=== PATIENT | female | born 2000 | race Caucasian/White ===

== ENCOUNTER 2022-09-13 00:19 | Observation (INO) | payer BC ==
[~2022-09-13] VITALS: Ht 152.4 cm; Wt 54.1 kg
[2022-09-13 00:30] VITALS: BP 101/67
[2022-09-13] MEDS ORDERED: MAG/ALUM/SIMETH 30 ML UDCUP PO PRN (01:30)
[2022-09-13] MEDS ORDERED: MORPHINE 4 MG SYG IV PRN (01:30)
[2022-09-13] MEDS ORDERED: BENZOCAINE/MENTH/CETYLPYRD CL 1 EACH LOZENGE MM PRN (01:30)
[2022-09-13] MEDS ORDERED: HYDROCODONE/ACETAMINOPHEN 5/325 MG TAB PO PRN (01:30)
[2022-09-13] MEDS ORDERED: ACETAMINOPHEN 325 MG TAB PO PRN ×2 (01:30)
[2022-09-13] MEDS ORDERED: ONDANSETRON 4MG INJ IV PRN (01:30)
[2022-09-13 02:05] LABS: HEMATOCRIT 34.5 % (36-48); MEAN CORPUSCULAR HEMOGLOBIN 31.5 pg (27.0-33.0); MEAN CORPUSCULAR HGB CONC 33.9 g/dL (32.0-36.0); MEAN CORPUSCULAR VOLUME 92.7 fL (80-100); RED BLOOD CELL COUNT(AUTO) 3.72 MIL/uL (4.00-5.50); RED CELL DISTRIBUTION WIDTH 12.1 % (11.0-15.5); WHITE BLOOD COUNT (AUTO) 5.5 K/uL (4.8-10.8)
[2022-09-13] MEDS: GUAIFENESIN-DM 200/20 MG 10 ML PO PRN ×3 (02:11→17:19)
[2022-09-13] MEDS: 0.9%NACL 1000ML 1,000 ML IV SCH ×3 (02:12→21:58)
[2022-09-13 02:23] LABS: POTASSIUM 3.5 mmol/L (3.5-5.1)
[2022-09-13 03:45] VITALS: BP 104/72
[2022-09-13] MEDS: IPRATROPIUM/ALBUTEROL SULFATE 3 ML SOLUTION IH SCH ×4 (06:37→23:40)
[2022-09-13 07:59] VITALS: BP 108/69
[2022-09-13] MEDS: FAMOTIDINE 20MG TAB PO SCH ×2 (09:22→21:59)
[2022-09-13] MEDS: OSELTAMIVIR PHOSPHATE 75 MG CAP PO SCH ×2 (09:22→21:59)
[2022-09-13 11:19] VITALS: BP 108/75
[2022-09-13 15:55] VITALS: BP 110/65
[2022-09-13 17:28] LABS: APPEARANCE,URINE CLEAR (CLEAR); BILIRUBIN,URINE NEGATIVE (NEGATIVE); COLOR,URINE YELLOW (YELLOW); GLUCOSE, URINE (UA) NEGATIVE (NEGATIVE); KETONES,URINE 10 mg/dL (NEGATIVE); LEUKOCYTE ESTERASE ,URINE NEGATIVE Leu/uL (NEGATIVE); NITRATE,URINE NEGATIVE (NEGATIVE); OCCULT BLOOD,URINE NEGATIVE (NEGATIVE); PROTEIN,URINE 30 mg/dL (NEGATIVE); UROBILINOGEN,URINE 0.2 mg/dL (0.2-1.0)
[2022-09-13 17:33] LABS: MUCUS,URINE FEW LPF (None Seen); SQUAMOUS EPITHELIAL CELL,UR FEW /HPF (0-2)
[2022-09-13 17:36] LABS: AMPHET/METH SCREEN,URINE NEGATIVE (NEGATIVE); BARBITURATE SCREEN, URINE NEGATIVE (NEGATIVE); BENZODIAZEPINES SCREEN,URINE NEGATIVE (NEGATIVE); CANNABINOID SCREEN,URINE POSITIVE (NEGATIVE); COCAINE SCREEN,URINE NEGATIVE (NEGATIVE); OPIATE SCREEN,URINE NEGATIVE (NEGATIVE); PHENCYCLIDINE SCREEN,URINE NEGATIVE (NEGATIVE)
[2022-09-13 20:06] VITALS: BP 117/93
[2022-09-13] MEDS ORDERED: ZOLPIDEM TARTRATE 5 MG TAB PO PRN (21:00)
[2022-09-14 00:11] VITALS: BP 111/62
[2022-09-14 03:58] VITALS: BP 112/76
[2022-09-14] MEDS: IPRATROPIUM/ALBUTEROL SULFATE 3 ML SOLUTION IH SCH ×2 (06:17→11:15)
[2022-09-14 07:30] VITALS: BP 118/55
[2022-09-14] MEDS: FAMOTIDINE 20MG TAB PO SCH (09:49)
[2022-09-14] MEDS: OSELTAMIVIR PHOSPHATE 75 MG CAP PO SCH (09:49)
[2022-09-14] MEDS ORDERED: OSEL75 PO (10:33)
== END 2022-09-14 12:30 | disposition home or self-care (01) ==
LOC: 4DH 00:19
PROVIDERS: ADMIT Hospitalist; ATTEND Hospitalist
DX: J10.1 Influenza due to other identified influenza virus with other respiratory manifestations (principal); R00.0 Tachycardia, unspecified; J39.8 Other specified diseases of upper respiratory tract; R06.2 Wheezing; I25.10 Atherosclerotic heart disease of native coronary artery without angina pectoris; I42.9 Cardiomyopathy, unspecified; Z79.899 Other long term (current) drug therapy; Z98.890 Other specified postprocedural states
CPT/HCPCS: 96374; 96361 ×3; 84484; 80048; 80305; 85027; 85651; 87880; 86140; 81001; 81025; 36415; 93306; 93356; 93005; 94640 ×6; 94664; 82948; G0378 ×32; J7030 ×2; J2405

== ENCOUNTER 2023-04-13 04:39 | Emergency (ER) | payer BC ==
[~2023-04-13] VITALS: Ht 152.4 cm; Wt 63.5 kg
[~2023-04-13 04:39] MED LIST: OSEL75 PO
[2023-04-13 05:23] LABS: APPEARANCE,URINE CLEAR (CLEAR); BILIRUBIN,URINE NEGATIVE (NEGATIVE); COLOR,URINE COLORLESS (YELLOW); GLUCOSE, URINE (UA) NEGATIVE (NEGATIVE); KETONES,URINE NEGATIVE (NEGATIVE); LEUKOCYTE ESTERASE ,URINE NEGATIVE Leu/uL (NEGATIVE); NITRATE,URINE NEGATIVE (NEGATIVE); OCCULT BLOOD,URINE MODERATE (NEGATIVE); PROTEIN,URINE NEGATIVE (NEGATIVE); UROBILINOGEN,URINE 0.2 mg/dL (0.2-1.0)
[2023-04-13 05:24] LABS: HCG,QUALITATIVE URINE NEGATIVE (NEGATIVE)
[2023-04-13 05:29] LABS: RBC,URINE 0-1 /HPF (0-1); SQUAMOUS EPITHELIAL CELL,UR RARE /HPF (0-2); WBC,URINE 0-1 /HPF (0-1)
[2023-04-13 05:30] LABS: AMPHET/METH SCREEN,URINE NEGATIVE (NEGATIVE); BARBITURATE SCREEN, URINE NEGATIVE (NEGATIVE); BENZODIAZEPINES SCREEN,URINE NEGATIVE (NEGATIVE); CANNABINOID SCREEN,URINE POSITIVE (NEGATIVE); COCAINE SCREEN,URINE NEGATIVE (NEGATIVE); OPIATE SCREEN,URINE NEGATIVE (NEGATIVE); PHENCYCLIDINE SCREEN,URINE NEGATIVE (NEGATIVE)
[2023-04-13] MEDS ORDERED: DiphenhydrAMINE HCL 50 MG/ML VIAL IV ONE (05:30)
[2023-04-13] MEDS ORDERED: KETOROLAC 30MG VIAL (30MG/ML) IVP ONE (05:30)
[2023-04-13] MEDS ORDERED: METOCLOPRAMIDE 10 MG/2 ML VIAL IVP ONE (05:30)
[2023-04-13 05:36] LABS: BASOPHILS % (AUTO) 0.2 % (0.0-5.0); EOSINOPHILS % (AUTO) 0.5 % (0.0-8.0); HEMATOCRIT 34.6 % (36-48); LYMPHOCYTES % (AUTO) 20.6 % (21.0-51.0); MEAN CORPUSCULAR HEMOGLOBIN 30.6 pg (27.0-33.0); MEAN CORPUSCULAR HGB CONC 33.8 g/dL (32.0-36.0); MEAN CORPUSCULAR VOLUME 90.6 fL (79-99); MONOCYTES % (AUTO) 3.1 % (3.0-13.0); NEUTROPHILS % (AUTO) 75.6 % (40.0-77.0); PLATELET COUNT (AUTO) 333 K/uL (130-400); RED BLOOD CELL COUNT(AUTO) 3.82 MIL/uL (4.00-5.50); RED CELL DISTRIBUTION WIDTH 11.9 % (11.0-15.5); WHITE BLOOD COUNT (AUTO) 4.2 K/uL (4.8-10.8)
[2023-04-13 05:45] LABS: CARBON DIOXIDE 23 mmol/L (21-32); CHLORIDE 108 mmol/L (101-111); CREATININE 0.8 mg/dL (0.5-1.5); GLOMERULAR FILTR. RATE CALC 107 mL/min (>90); GLUCOSE,RANDOM 114 mg/dL (70-105); POTASSIUM 4.1 mmol/L (3.5-5.1); SODIUM SERUM 146 mmol/L (136-145); UREA NITROGEN, BLOOD 5 mg/dL (7-18)
[2023-04-13 05:49] LABS: ALANINE AMINOTRANSFERASE 24 U/L (12-78); ALBUMIN 4.3 g/dL (3.5-5.0); ASPARTATE AMINOTRANSFERASE 17 U/L (10-37); LIPASE 65 U/L (114-286); TOTAL PROTEIN, SERUM 7.8 g/dL (6.0-8.3)
[2023-04-13 05:53] LABS: ACETAMINOPHEN < 3 mcg/mL (10-30); SALICYLATE < 2.8 mg/dL (2.8-20.0)
[2023-04-13 08:58] VITALS: BP 112/64
== END 2023-04-13 09:25 | disposition home or self-care (01) ==
LOC: EDH 04:39
DX: F10.129 Alcohol abuse with intoxication, unspecified (principal); Y90.6 Blood alcohol level of 120-199 mg/100 ml
CPT/HCPCS: 99283; 80053; 80305; 83690; 85025; 81001; 81025; 36415; G0481